=== PATIENT | female | born 1945 | race Caucasian/White ===

== ENCOUNTER 2017-02-19 17:47 | Emergency (ER) | payer MEDICARE ==
--- NOTE | 2017-02-19 18:12 | Emergency Department Record ---
History of Present Illness - General Chief Complaint: Dizziness Stated Complaint: LIGHT HEADED,NOSE BLEED,WEAKNESS IN BOTH LEGS Time Seen by Provider: 02/19/17 18:04 Source: Patient Mode of Arrival: Ambulatory Limitations: No limitations - History of Present Illness Initial Comments: 71 yo female presents to ED for evaluation of an episode of bilateral lower extremity weakness and transient dizziness that occurred 2 hours ago, lasted less than 1 minute in duration. Patient reports that she was attempting to stand from a seated position when her symptoms occurred. Patient denies numbness, tingling, or unilateral weakness. Patient denies health problems at her baseline and takes no medications. MD Complaint: Dizziness Onset/Timin -: Hour(s) Timing: Sudden onset Description: Lightheadedness History of Same: No History of Trauma: No Associated Symptoms: Denies other symptoms - Benkelman Coma Scale Eye Response: (4) Open spontaneously Motor Response: (6) Obeys commands Verbal Response: (5) Oriented Vikas Total: 15 - Related Data Allergies Allergy/AdvReac Type Severity Reaction Status Date / Time hydrocodone bitartrate Allergy Intermediate NAUSEA AND Verified 02/19/17 17:55 [From [place]] VOMITING codeine Allergy Mild NAUSEA Verified 02/19/17 17:55 Penicillins Allergy Mild RASH Verified 02/19/17 17:55 Review of Systems Constitutional: Denies: Chills, Fever, Malaise, Night sweats Eyes: Denies: Eye discharge, Eye pain ENT: Denies: Congestion, Ear pain, Epistaxis Respiratory: Denies: Cough, Dyspnea Cardiovascular: Denies: Chest pain, Dyspnea on exertion Endocrine: Denies: Fatigue, Heat or cold intolerance Gastrointestinal: Denies: Abdominal pain, Nausea, Vomiting Genitourinary: Denies: Incontinence, Retention Musculoskeletal: Denies: Arthralgia, Back pain, Gout, Joint swelling Skin: Denies: Bruising, Change in color Neurological: Reports: Vertigo. Denies: Abnormal gait, Confusion, Headache Psychiatric: Denies: Anxiety Hematological/Lymphatic: Denies: Anemia, Blood Clots Past Medical History - SOCIAL HISTORY Smoking Status: Never smoker - RESPIRATORY Hx Respiratory Disorders: Yes Hx Pneumonia: Yes (long ago) - CARDIOVASCULAR Hx Cardio Disorders: Yes Hx Hypertension: Yes (no meds since lost wt) Hx Palpitations: Yes (30 yrs) - NEURO Hx Neuro Disorders: Yes Hx Dizziness: Yes (vertigo once) - GI Hx GI Disorders: Yes Hx Hiatal Hernia: Yes Hx Wt Loss/Wt Gain: Yes (wt loss 40#/3yrs) - Hx Genitourinary Disorders: Yes Hx UTI: Yes (october 2014) - ENDOCRINE Hx Endocrine Disorders: No Hx Diabetes: No Hx Thyroid Disease: No - MUSCULOSKELETAL Hx Musculoskeletal Disorders: Yes Hx Arthritis: Yes (left knee/neck/back/fingers) - PSYCH Hx Psych Problems: No - HEMATOLOGY/ONCOLOGY Hx Hematology/Oncology Disorders: No Family Medical History Hx Cancer: Mother Hx Dementia: Grandparents *Dementia Comment: maternal grandfather Hx Diabetes: Mother, Brother/Sister *Diabetes Comment: sister/mother Hx Heart Disease: Father, Mother, Brother/Sister *Heart Comment: sister Hx HTN: Father, Brother/Sister *HTN Comment: brother Hx Seizures: Children *Seizure Comment: daughter-none since brain surgery Physical Exam - General General Appearance: Alert, Oriented x3, Cooperative, No acute distress Limitations: No limitations - Head Head exam: Atraumatic, Normocephalic, Normal inspection Head exam detail: negative: Abrasion, Contusion, Linares's sign, General tenderness, Hematoma, Laceration - Eye Eye exam: Normal appearance. negative: Conjunctival injection, Periorbital swelling, Periorbital tenderness, Scleral icterus - ENT Ear exam: negative: Auricular hematoma, Auricular trauma Nasal Exam: negative: Active bleeding, Discharge, Dried blood, Foreign body Mouth exam: negative: Drooling, Laceration, Muffled voice, Tongue elevation - Neck Neck exam: Normal inspection. negative: Meningismus, Tenderness - Respiratory Respiratory exam: Normal lung sounds bilaterally. negative: Rhonchi, Stridor, Wheezes - Cardiovascular Cardiovascular Exam: Regular rate, Normal rhythm, Normal heart sounds - GI/Abdominal GI/Abdominal exam: Soft. negative: Pulsatile mass, Rebound, Rigid - Rectal Rectal exam: Deferred - exam: Deferred - Extremities Extremities exam: Normal inspection. negative: Calf tenderness, Pedal edema, Tenderness - Back Back exam: Denies: CVA tenderness (R), CVA tenderness (L) - Neurological Neurological exam: Alert, Normal gait, Oriented X3 - Psychiatric Psychiatric exam: Normal affect, Normal mood - Skin Skin exam: Normal color. negative: Abrasion Type of lesion: negative: abrasion Course - Reevaluation(s) Reevaluation #1: 02/19/17 18:09 Patient seen and examined, was concerned that her symptoms may have been related to possible stroke. NIH stroke scale is 0 on examination, symptoms were bilateral in nature and occurred while attempting to stand from a seated position, lasted < 1 minute in duration. Symptoms are more likely the result of orthostatic change in positioning. Offered the patient examination with CT imaging as well as transfer for MRI, patient declined after our discussion of her symptoms and stroke scale findings (0). Will obtain EKG and basic labs and re-evaluate. Reevaluation #2: 02/19/17 18:29 EKG: NSR 72 Normal axis, normal intervals No acute ST-T wave changes Reevaluation #3: 02/19/17 19:06 Labs reviewed and are grossly unremarkable for an acute process. Patient and family updated on all results, patient reports that she is feeling well and at her baseline. Patient was instructed to return to ED for any recurrence of her symptoms. Medical Decision Making - Lab Data Result diagrams: 02/19/17 18:40 02/19/17 18:40 Disposition Disposition: Discharge Clinical Impression: Sympathotonic orthostatic hypotension Disposition: Home, Self-Care Condition: (2) Stable Instructions: Hypotension (ED) Additional Instructions: Return to ED if your symptoms worsen or if you have any concerns. Follow-up with your family doctor in 3-5 days. Forms: Patient Portal Access Time of Disposition: 19:07 Quality - Quality Measures Quality Measures: N/A - Blood Pressure Screening Does Patient Have Any of the Following: No Blood Pressure Classification: Hypertensive Reading Systolic Measurement: 165 Diastolic Measurement: 77 Screening for High Blood Pressure: < First Hypertensive BP, F/U Documented > [ [id number]] First Hypertensive Follow-up Interventions: Referral to alternative/primary care provider.
[2017-02-19 18:48] LABS: BASO % 0.7 % (0-6); EOS % 1.3 % (0-6); GRAN % 52.9 % (47-80); HEMATOCRIT 39.6 % (35.0-47.0); HEMOGLOBIN 12.7 gm/dl (11.6-16.0); LYMPH % 35.2 % (16-45); MEAN CELL VOLUME 94.3 fl (81-97); MEAN CORPUSCULAR HEMOGLOBIN 30.2 pg (27-33); MEAN CORPUSCULAR HGB CONC 32.1 g/dl (32-36); MEAN PLATELET VOLUME 9.5 fl (7.4-10.4); MONO % 9.9 % (0-9); PLATELET COUNT 299 K/uL (130-400); RED CELL DISTRIBUTION WIDTH 13.9 % (11.5-14.5); WHITE BLOOD COUNT W/O DIFF 5.5 K/uL (4.2-12.2)
[2017-02-19 19:04] LABS: ALB/GLOB RATIO 1.6 (1.1-1.8); ALBUMIN 4.6 g/dL (4.0-5.0); ALKALINE PHOSPHATASE 68 U/L (35-104); ALT/SGPT 13 U/L (<33); AST/SGOT 21 U/L (10.0-35.0); BLOOD UREA NITROGEN 11 mg/dL (8-23); CREATININE 0.6 mg/dL (0.5-0.9); EST GLOMERULAR FILTRATION RATE > 60 mL/min; GLUCOSE,RANDOM 143 mg/dL (74-109); TOTAL PROTEIN 7.4 g/dL (6.6-8.7)
== END 2017-02-19 19:19 | disposition home or self-care (01) ==
LOC: ER 17:47
DX: I95.1 Orthostatic hypotension (principal); R42 Dizziness and giddiness; I10 Essential (primary) hypertension
CPT/HCPCS: 80053; 85025; 93005; 93010; 99284

== ENCOUNTER 2017-09-18 09:34 | Day surgery (SDC) | payer MEDICARE ==
[2017-09-18] MEDS ORDERED: PROPOFOL 10 MG/ML VIAL IV ONE (09:35)
[2017-09-18] MEDS ORDERED: LIDOCAINE 2% MDV (20MG/ML) 20ML VIAL IV ONE (09:35)
--- NOTE | 2017-09-19 13:50 | Operative Note ---
DATE OF SURGERY: 09/18/2017 OPERATION: COLONOSCOPY to the cecum. INDICATION: Family history of colon cancer in patient's mother. This is a screening evaluation 5 years from her last examination. She denies any current GI issues. ANESTHESIA: Intravenous sedation was administered by the department of anesthesiology and included Diprivan titrated to effect. PROCEDURE: Following informed consent from this alert individual including a discussion of the risks and benefits of the procedure and an opportunity for the patient to ask questions, the patient was in the left lateral decubitus position. A digital rectal examination was performed. No abnormalities were noted. Following this, the Olympus [id number] video colonoscope was inserted into the rectum without resistance. The rectal mucosa had a normal appearance with normal folds and distensibility. The colonoscope was advanced up through the bowel to the level of the cecum. A few scattered diverticula were noted in the sigmoid colon and in the ascending colon. The cecum was defined by noting the ileocecal valve and appendiceal orifice. The colon preparation was good. From the base of the cecum, the colonoscope was then slowly withdrawn. The patient's bowel was somewhat redundant. No other mucosal changes were appreciated. Again diverticulosis was noted and found to be mild. No polyps or tumors were seen. Retroflexion in the rectum was endoscopically unremarkable. The instrument was withdrawn. The patient tolerated the procedure well and was returned to the recovery area in stable condition. IMPRESSION: 1. Diverticulosis involving the ascending colon and sigmoid colon. 2. Otherwise unremarkable colonoscopy to the cecum. RECOMMENDATIONS: The patient was advised to have screening colonoscopy in 5 years' time or call sooner should problems arise. Followup will be with Frida Wall NP. As always, thank you for allowing me to participate in the care of your patient. CC: JADA Leyva MD MTDD
== END 2017-09-18 12:10 | disposition home or self-care (01) ==
LOC: HOP 09:34
PROVIDERS: ATTEND Internal Medicine Gastroenterology
DX: Z12.11 Encounter for screening for malignant neoplasm of colon (principal); Z80.0 Family history of malignant neoplasm of digestive organs; K57.30 Diverticulosis of large intestine without perforation or abscess without bleeding